=== PATIENT | female | born 1960 | race Caucasian/White ===

== ENCOUNTER 2020-07-28 16:31 | Outpatient (CLI) | payer MEDICARE, MEDICAID, SELFPAY ==
--- NOTE | ~2020-07-28 | US_ITS ---
US venous doppler LE RT DATE: 07/28/2020 17:08 INDICATION: Right leg pain TECHNIQUE: Real-time imaging and color flow imaging and Doppler analysis COMPARISON: None FINDINGS: There is spontaneous and phasic flow and normal augmentation and color flow signal and norm al compression of the veins of the right leg. IMPRESSION: No evidence of deep venous thrombosis of right leg Reviewed, dictated and finalized at [facility]. Reviewed, dictated and finalized at [facility]. [employer]
== END 2020-07-28 16:32 | disposition home or self-care (01) ==
PROVIDERS: Family Provider Internal Medicine; PCP Internal Medicine; Visit Provider Physician Assistant
DX: M79.661 Pain in right lower leg (principal)
CPT/HCPCS: 93971